=== PATIENT | female | born 1975 | race Caucasian/White ===

== ENCOUNTER → 2022-11-09 16:44 | Outpatient (REF) | payer OTHER, SELFPAY | LOC: RAD 16:44 | PROVIDERS: ATTENDING PHYSICIAN Physician Assistant Medical | DX: M79.671 Pain in right foot (principal) | CPT/HCPCS: 73630 ==

== ENCOUNTER → 2023-08-10 06:30 | Day surgery (SDC) | payer OTHER, SELFPAY | LOC: GI 06:30 | PROVIDERS: ATTENDING PHYSICIAN Internal Medicine; FAMILY PHYSICIAN Internal Medicine | DX: D12.5 Benign neoplasm of sigmoid colon (principal); K29.50 Unspecified chronic gastritis without bleeding; K90.0 Celiac disease; K44.9 Diaphragmatic hernia without obstruction or gangrene; K31.89 Other diseases of stomach and duodenum; D50.9 Iron deficiency anemia, unspecified | CPT/HCPCS: 45385; 43239; 88305; 88341; 88342 ==

== ENCOUNTER → 2023-09-20 17:31 | Outpatient (REF) | payer OTHER, SELFPAY | LOC: RCS 17:31 | PROVIDERS: ATTENDING PHYSICIAN Family Medicine | DX: I34.1 Nonrheumatic mitral (valve) prolapse (principal) | CPT/HCPCS: 93306 ==

== ENCOUNTER → 2024-02-28 08:12 | Outpatient (REF) | payer OTHER, SELFPAY | LOC: HWRAD 08:12 | PROVIDERS: ATTENDING PHYSICIAN Internal Medicine; FAMILY PHYSICIAN Family Medicine | DX: D50.9 Iron deficiency anemia, unspecified (principal); K90.0 Celiac disease; E63.9 Nutritional deficiency, unspecified | CPT/HCPCS: 77080 ==

== ENCOUNTER → 2024-03-18 16:58 | Outpatient (REF) | payer OTHER, SELFPAY | LOC: WDC 16:58 | PROVIDERS: ATTENDING PHYSICIAN Obstetrics & Gynecology Gynecology; FAMILY PHYSICIAN Family Medicine | DX: Z12.31 Encounter for screening mammogram for malignant neoplasm of breast (principal) | CPT/HCPCS: 77063; 77067 ==

== ENCOUNTER → 2024-05-13 07:48 | Outpatient (REF) | payer OTHER, SELFPAY | LOC: DHVS 07:48 | PROVIDERS: ATTENDING PHYSICIAN Surgery Vascular Surgery | DX: I77.89 Other specified disorders of arteries and arterioles (principal) | CPT/HCPCS: 93922; 93925 ==

== ENCOUNTER → 2024-10-09 07:55 | Outpatient (REF) | payer OTHER, SELFPAY | LOC: HWRAD 07:55 | PROVIDERS: ATTENDING PHYSICIAN Family Medicine; REFERRING PHYSICIAN Obstetrics & Gynecology Gynecology | DX: R10.32 Left lower quadrant pain (principal) | CPT/HCPCS: 76856 ==

== ENCOUNTER → 2025-03-19 18:16 | Outpatient (REF) | payer OTHER, SELFPAY | LOC: WDC 18:16 | PROVIDERS: ATTENDING PHYSICIAN Obstetrics & Gynecology Gynecology; FAMILY PHYSICIAN Family Medicine | DX: Z12.31 Encounter for screening mammogram for malignant neoplasm of breast (principal) | CPT/HCPCS: 77063; 77067 ==

== ENCOUNTER 2025-03-21 10:50 | Emergency (ER) | payer OTHER, SELFPAY ==
[2025-03-21 11:00] VITALS: BP 145/94
--- NOTE | 2025-03-21 11:33 | ED.GENMED ---
History of Present Illness
General
Chief Complaint: Skin Surface Trauma
Source: patient
Time Seen by Provider: 03/21/25 11:17
History of Present Illness
History of Present Illness:
50-year-old female that she was cleaning dishes and cut her right middle finger with a kitchen knife. Last tetanus in 2011 but patient does note she had a complication from this. No other injuries were sustained. She is right-hand dominant.
Past History
Past History
ED Past Medical History: Asthma and Valvular disease (MVP)
ED Past Surgical History: Appendectomy and
Social History
Tobacco: Non-smoker
Alcohol: None
Drug: None
Personal:
Living: with family
Employment: Employed
Family History
Family History: Other (Noncontributory)
Review of Systems
Review of Systems
All Other Systems: ROS reviewed and negative except as documented in HPI and ROS
Phy Exam
Physical Exam
Physical Exam:
GENERAL: Alert , in no apparent distress
EYE: conjunctiva clear
Head: Normocephalic atraumatic
NECK: Supple,
ENT: mmm.
LUNGS: no acute respiratory distress
NEUROLOGICAL: Alert and oriented
SKIN: Warm and dry, very superficial already well-approximated laceration along the palmar surface of the right middle finger. No active bleeding or oozing. Extremities otherwise warm and well-perfused.
MUSCULOSKELETAL: well perfused.
PSYCH: Normal and appropriate interaction.
Scores
Heart Failure Risk
Heart Failure Risk Score: Not Applicable
Heart Score for Chest Pain Patients
STEMI patient?: Not applicable
Withdrawal Assessment of Alcohol
Withdrawal Assessment Completed?: Not applicable
Course
Vital Signs
Initial and Last Documented VS:
Initial Vital Signs
Temp Pulse Resp BP Pulse Ox
98.2 F 115 18 145/94 99
03/21/25 11:00 03/21/25 11:00 03/21/25 11:00 03/21/25 11:00 03/21/25 11:00
Last Documented Vital Signs
Temp Pulse Resp BP Pulse Ox
98.2 F 115 18 145/94 99
03/21/25 11:00 03/21/25 11:00 03/21/25 11:00 03/21/25 11:00 03/21/25 11:33
MDM/Problems Addressed
Differential Diagnosis Includes:
Simple laceration
No concern for fracture or tendon involvement
MDM/Problems Addressed:
50-year-old female presented to the ER for evaluation of a superficial right middle finger laceration. Patient was holding pressure and laceration is already well-approximated. Will place Gelfoam and dressing over top to prevent any further
bleeding or bruising. Localized wound care advised. Otherwise stable for discharge home. Will defer tetanus to primary care provider to update due to patient's reported complication following the last tetanus vaccine.
*Pulse Oximetry
SaO2: 99
Oxygen Mode of Delivery: Room air
Patient hypoxic: no
*Critical Care Note
Total Time (30-74mins, 75-104mins- exclusive of procedures): Not Applicable
ED Attending Note
-
Portions of this chart may have been created with voice recognition software.� Occasional wrong word or��sound alike� substitutions may have occurred due to the inherent limitations of voice recognition software.
Discharge Plan
Departure
Patient Disposition: Home (Routine Discharge)
Date of Disposition: 03/21/25
Time of Disposition: 11:33
Patient with high blood pressure during this ER visit?: Yes
Discharge Problem:
Laceration of right middle finger
Instructions: Wound Care (DC)
Prescriptions:
No Action
multivitamin 1 EACH tablet
1 ea PO DAILY
albuterol sulfate 1 PUFF HFA aerosol inhaler
2 puff inhalation PRN (Reason: asthma)
apixaban [Eliquis] 5 MG tablet
5 mg PO BID
aspirin 81 MG tablet,chewable
81 mg PO DAILY 0RF
oxycodone 5 MG tablet
5 mg PO Q4HPRN PRN (Reason: moderate pain) Qty: 10 0RF
Referrals:
Lillian Peacock MD [Family Provider, Family Practice]
Interventions
Interventions:
*General Assessment Last Done: 03/21/25 11:03
*Neglect/Abuse Screening Last Done: 03/21/25 11:03
*ED COVID-19 Vaccine History Last Done: 03/21/25 11:03
*ED Influenza Vaccine History Last Done: 03/21/25 11:03
*Risk Screen - Suicide (C-SSRS) Last Done: 03/21/25 11:03
*Nursing Disposition Last Done: 03/21/25 11:47
ED-Skin Assessment Last Done: 03/21/25 11:47
Discharge Date and Time
Discharge Date/Time: 03/21/25 11:48
Print Language: MALTESE
== END 2025-03-21 11:48 | disposition home or self-care (01) ==
LOC: EMR 10:50
PROVIDERS: EMERGENCY PHYSICIAN Emergency Medicine; FAMILY PHYSICIAN Family Medicine
DX: S61.212A Laceration without foreign body of right middle finger without damage to nail, initial encounter (principal); Y92.000 Kitchen of unspecified non-institutional (private) residence as the place of occurrence of the external cause; J45.909 Unspecified asthma, uncomplicated; Z90.49 Acquired absence of other specified parts of digestive tract; I38 Endocarditis, valve unspecified; I34.1 Nonrheumatic mitral (valve) prolapse
CPT/HCPCS: 99282